=== PATIENT | male | born 1960 | race Caucasian/White ===

== ENCOUNTER 2021-12-21 11:17 | Emergency (ER) | payer MEDICAID, SELFPAY ==
[2021-12-21 11:34] VITALS: BP 131/74; PULSE 68; RESP 16; TEMP 35.9; O2SAT 100
--- NOTE | 2021-12-21 12:12 | ED.GENADULT ---
HPI - General Adult General Chief complaint: Dental/Oral Stated complaint: Sore Throat Time Seen by Provider: 12/21/21 12:12 Source: patient Mode of arrival: ambulatory Limitations: no limitations History of Present Illness HPI narrative: 61-year-old male presents with growth under tongue for 2 to 3 months. States it started as a small sore that he thought was a burn from hot food. Reports that it is getting larger and is painful. Now has lymph node swelling to his neck. Patient smokes cigarettes. Does not use chewing tobacco. All systems reviewed and negative except as noted above. Related Data Home Medications Medication Instructions Recorded Confirmed No Home Medications 12/21/21 12/21/21 Allergies Allergy/AdvReac Type Severity Reaction Status Date / Time Penicillins Allergy Other Verified 12/21/21 11:45 Review of Systems Review of Systems: CONSTITUTIONAL: Denies fever, chills, or sweats. EYES: Denies visual changes, redness, or discharge. ENT: Denies rhinorrhea, congestion, sore throat, or otalgia. Reports growth under his tongue. CARDIOVASCULAR: Denies chest pain, palpitations, or edema. RESPIRATORY: Denies cough or dyspnea. GASTROINTESTINAL: Denies abdominal pain, nausea, vomiting, or diarrhea. GENITOURINARY: Denies dysuria or hematuria. SKIN: Denies rash or itching. MUSCULOSKELETAL: Denies back pain, joint pain, or myalgia. NEUROLOGIC: Denies headache, numbness, or weakness. PSYCHIATRIC: Denies anxiety or depression. All other systems reviewed are negative, except as documented in HPI. PMFSH Comments At time of signature, agree with nursing past medical, surgical, social and family history. There is no relevant family history pertinent to the presenting complaint. Exam Narrative: GENERAL: This is a well-nourished, well-developed patient, in no apparent distress. HEAD: normocephalic, atraumatic. EYES: PERRL. Sclera clear/white. Vision is grossly intact. EARS: External ears normal NOSE: External nose normal Mouth: Mucous membranes moist, posterior pharynx clear. Patient has abnormal growth to floor of mouth/frenulum area. The area is erythematous and some white coloring. It is tender on palpation. NECK: Neck supple, cervical lymphadenopathy. CARDIOVASCULAR: Regular rate and rhythm without murmurs, gallops, or rubs. RESPIRATORY: Clear to auscultation. Breath sounds equal bilaterally. No wheezes, rales, or rhonchi. SKIN: warm, Dry, intact with no suspicious lesions or rash, good texture and turgor. NEURO: awake, alert, and oriented to person, place and time. There were no obvious focal neurologic abnormalities. EXTREMITIES: Normal range of motion to all extremities. Course Course Level of Care: Express Care Visit Vital Signs Vital signs: Vital Signs Temperature 35.9 C L 12/21/21 11:34 Pulse Rate 68 12/21/21 11:34 Respiratory Rate 16 12/21/21 11:34 Blood Pressure 131/74 12/21/21 11:34 Pulse Oximetry 100 12/21/21 11:34 Temperature 35.9 C L 12/21/21 11:34 Pulse Rate 68 12/21/21 11:34 Respiratory Rate 12/21/21 11:34 Blood Pressure 131/74 12/21/21 11:34 Pulse Oximetry 100 12/21/21 11:34 Reviewed Medical Decision Making MDM Narrative Medical decision making narrative: Patient has growth to floor of mouth that most likely needs biopsy. Patient given follow-up with [facility]. Informed patient that if symptoms are worsening, any difficulty swallowing or breathing recommend that he go to the ER. Patient is aware of diagnosis, understands and agrees to treatment plan. Anticipatory guidance given. Patient agrees to follow-up as directed and is aware of reasons to seek care at the emergency department. Portions of this record may have been created with voice recognition software Vital Signs Vital Signs: Vital Signs Temperature 35.9 C L 12/21/21 11:34 Pulse Rate 68 12/21/21 11:34 Respiratory Rate 12/21/21 11:34 B
== END 2021-12-21 12:20 | disposition home or self-care (01) ==
PROVIDERS: Emergency Provider Nurse Practitioner Family
DX: R22.0 Localized swelling, mass and lump, head (principal); R59.1 Generalized enlarged lymph nodes
CPT/HCPCS: 99211; G0463

== ENCOUNTER 2023-10-19 14:09 | Outpatient (CLI) | payer OTHER, SELFPAY ==
[2023-10-19 14:52] LABS: Basophils Absolute Auto 0.1 K/mm3 (0.0-0.1); Basophils Percent Auto 0.8 % (0.2-1.2); Eosinophils Absolute Auto 0.2 K/mm3 (0-0.3); Eosinophils Percent Auto 3.5 % (0-4.4); Hematocrit 42.1 % (42.0-52.0); Hemoglobin 13.7 g/dL (14.0-18.0); Immature Granulocyte Absolute 0.02 K/mm3 (0.00-0.031); Immature Granulocyte Percent A 0.3 % (0-0.5); Lymphocytes Absolute Auto 1.01 K/mm3 (0.9-3.2); Lymphocytes Percent Auto 15.9 % (18.3-44.2); Mean Corpuscular HGB Conc 32.5 g/dl (32-36); Mean Corpuscular Hemoglobin 31.4 pg (26-34); Mean Corpuscular Volume 96.3 fl (80-100); Mean Platelet Volume 9.6 fl (7.4-10.4); Monocytes Absolute Auto 0.8 K/mm3 (0.1-0.6); Monocytes Percent Auto 12.6 % (2.6-8.5); Neutrophils Absolute Auto 4.3 K/mm3 (1.3-6.7); Neutrophils Percent Auto 66.9 % (45.5-73.1); Platelet Count Result 319 k/mm3 (150-375); Red Blood Count 4.37 M/mm3 (4.6-6.20); Red Cell Distribution Width 13.2 % (11.5-14.5); White Blood Count 6.4 K/mm3 (4.5-10.0)
[2023-10-19 15:04] LABS: Alanine Aminotransferase 29 U/L (6-50); Albumin Level 4.2 g/dL (3.5-5.1); Alkaline Phosphatase 112 U/L (38-126); Anion Gap 8 mmol/L (8-16); Aspartate Amino Transferase 42 U/L (17-59); Bilirubin,Total 0.6 mg/dL (0.2-1.3); Blood Urea Nitrogen 24 mg/dL (9-20); Calcium 9.5 mg/dL (8.4-10.2); Carbon Dioxide 26 mmol/L (22-30); Chloride 104 mmol/L (98-107); Cholesterol 239 mg/dL (0-200); Estimated Glomerular Filt Rate > 60; Glucose 103 mg/dL (65-110); HDL Direct 35 mg/dL; Potassium 4.3 mmol/L (3.4-5.0); Sodium 138 mmol/L (137-145); Triglycerides 381 mg/dL (<150)
[2023-10-19 15:15] LABS: LDL Cholesterol Direct 133 mg/dL
[2023-10-19 15:34] LABS: Prostate Specific Antigen 2.7 ng/mL (< OR = 4.0)
== END 2023-10-19 14:10 | disposition home or self-care (01) ==
LOC: ANHLAB 14:10
PROVIDERS: PCP Internal Medicine; Visit Provider Clinical Nurse Specialist
DX: Z12.5 Encounter for screening for malignant neoplasm of prostate (principal); Z13.228 Encounter for screening for other metabolic disorders
CPT/HCPCS: 36415; 80053; 80061; 84153; 85025; G0103

== ENCOUNTER 2023-11-04 06:42 | Outpatient (NON) | payer OTHER, SELFPAY | END 2023-11-04 06:43 | disposition home or self-care (01) | PROVIDERS: PCP Internal Medicine; Visit Provider Internal Medicine Gastroenterology | DX: Z12.11 Encounter for screening for malignant neoplasm of colon (principal); D12.5 Benign neoplasm of sigmoid colon | CPT/HCPCS: 88305 ==

== ENCOUNTER 2023-11-04 07:22 | Day surgery (SDC) | payer OTHER, SELFPAY ==
[2023-10-21 10:11] VITALS: BMI 23.6
[2023-11-04 08:14] VITALS: BMI 23.0
[2023-11-04 08:18] VITALS: BP 112/86; PULSE 66; RESP 20; TEMP 36.7; O2SAT 99
--- NOTE | 2023-11-04 08:38 | P.HP_ITS ---
History of Present Illness History of Present Illness Consent: Risks, benefits, and alternatives have been discussed and questions answered. Patient agrees to proceed with procedure. Chief complaint: Neoplasm screening Narrative: Amrit Harmon is a 63 year old male presents for screening colonoscopy. Patient has a weight appetite and bowel movements are normal. Patient denies abdominal pain. He has had no bleeding. Previous colonoscopy 10 years ago was unremarkable. Patient does report having insert 2 years ago. Currently being monitored , he is felt to be free of disease. Review of Systems Review of Systems: Review of systems noncontributory. [facility] Past Medical History Medical History Allergy to honey bee venom Family History Family History Father Alcoholism Grandparent Lung cancer Malignant neoplasm of prostate Diabetes mellitus Social History Social History (Updated 10/20/23 @ 13:44 by Amber Kat MA) Smoking packs per day: 1 Smoking cigarettes per day: 20.0 Smoking status: Former smoker Alcohol intake: current Drinks per week: 5 Alcohol use details: 4 beers every couple of days Substance use: current Substance use type: does not use Living arrangements: alone Occupation/Education: occupation Additional occupation/education comments: [employer] Meds Home Medications and Allergies Home Medications Medication Instructions Recorded Confirmed Type chlorhexidine gluconate 0.12 % 15 ml buccal DAILY 10/20/23 11/04/23 History mouthwash doxazosin 2 mg tablet See Rx Instructions .Route 10/26/23 11/04/23 Rx .COMPLEX #30 tabs Allergies Allergy/AdvReac Type Severity Reaction Status Date / Time bee venom protein (honey bee) Allergy Severe Anaphylaxis Verified 11/04/23 08:06 Penicillins Allergy Other Verified 11/04/23 08:06 Vital Signs Vital Signs - 24 hr 11/04/23 08:18 Temperature 98.1 F Pulse Rate 66 Respiratory Rate 20 Blood Pressure 112/86 Pulse Oximetry 99 Oxygen Delivery Room Air Exam Narrative: Physical exam reveals patient signs stable. HEENT exam is unremarkable. Patient is anicteric. Lungs are clear to auscultation and percussion. Heart is without murmur or extra sounds. Abdomen bowel sounds are present soft nontender with no organomegaly. Digital external rectal exam normal. Assessment and Plan Assessment and plan (1) Screening for colon cancer: Code(s): Z12.11 - Encounter for screening for malignant neoplasm of colon Status: Acute Assessment and Plan: Patient presents today for screening colonoscopy. He appears to be at average risk for colon polyps. Last exam 10 years ago was unremarkable. (2) History of head and neck cancer: Code(s): Z85.89 - Personal history of malignant neoplasm of other organs and systems Status: Acute
--- NOTE | 2023-11-04 08:44 | WPDANESEPPF ---
Anes - Initial Pre Proc Eval Procedure: Operation Date: 11/04/23 09:30 Proposed Procedures p Colonoscopy - Prabhakar Rodriguez MD Date/Time: 11/04/23 08:44 Surgeon: Prabhakar Rodriguez MD Pre Op Diagnosis: Neoplasm screening Patient Data Age: 63 Gender: M Height: 1.8 m Weight: 74.8 kg Last Vital Signs Temp 36.7 C 11/04/23 08:18 Pulse 66 11/04/23 08:18 Resp 20 11/04/23 08:18 BP 112/86 11/04/23 08:18 Pulse Ox 99 11/04/23 08:18 O2 Del Method Room Air 11/04/23 08:18 Allergies Allergy/AdvReac Type Severity Reaction Status Date / Time bee venom protein (honey bee) Allergy Severe Anaphylaxis Verified 11/04/23 08:06 Penicillins Allergy Other Verified 11/04/23 08:06 Home Medications Medication Instructions Recorded Confirmed Type chlorhexidine gluconate 0.12 % 15 ml buccal DAILY 10/20/23 11/04/23 History mouthwash doxazosin 2 mg tablet See Rx Instructions .Route 10/26/23 11/04/23 Rx .COMPLEX #30 tabs Patient hx anesthesia problems: none Family hx anesthesia problems: none Results Review: All pre-operative results and documents have been reviewed as part of the pre-operative evaluation. [facility] Past Medical History Medical History Allergy to honey bee venom Family History Family History Father Alcoholism Grandparent Lung cancer Malignant neoplasm of prostate Diabetes mellitus Social History Social History Smoking packs per day: 1 Smoking cigarettes per day: 20.0 Smoking status: Former smoker Alcohol intake: current Drinks per week: 5 Alcohol use details: 4 beers every couple of days Substance use: current Substance use type: does not use Living arrangements: alone Occupation/Education: occupation Additional occupation/education comments: [employer] Anes - Eval Final PreProcedure Day of Procedure 11/04/23 08:44 Patient weight: normal Heart: regular rate and rhythm Lungs: decreased breath sounds Airway: Mallampati scale class III, special considerations retrognathia and other (previous head and neck radiation) Neurological: alert and oriented Last oral intake: >/= 8 hours ASA classification: III Emergent: no Anesthetic plan: proceed Anesthesia type and monitoring: general GIVS and standard monitoring Results Review: All pre-operative results and documents have been reviewed as part of the pre-operative evaluation. Informed Consent: The patient's anesthetic plan and its attendant risks and benefits were discussed with the patient/family/POA. Questions were solicited and answers provided to the satisfaction of the patient/family/POA.
[2023-11-04] MEDS: LACTATED RINGERS 1,000 ML 150 ML IV CONT (08:47)
[2023-11-04 09:13] VITALS: BP 108/69; PULSE 55; RESP 14; O2SAT 99
[2023-11-04 09:23] VITALS: BP 109/66; PULSE 50; RESP 14; O2SAT 99
[2023-11-04 09:33] VITALS: BP 115/69; PULSE 50; RESP 14; O2SAT 100
[2023-11-04 09:43] VITALS: BP 119/72; PULSE 51; RESP 14; O2SAT 100
[2023-11-04 09:53] VITALS: BP 130/70; PULSE 52; RESP 14; O2SAT 100
--- NOTE | 2023-11-04 10:54 | WPDANESPN ---
Anes - Prog Note Post-Op Date/Time: 11/04/23 10:54 Cardiovascular status: normal Respiratory status: normal Airway patency: baseline Mental status: baseline Post-Op hydration status: normal Vital Signs: Last Vital Signs Temp 36.7 C 11/04/23 08:18 Pulse 52 L 11/04/23 09:53 Resp 14 11/04/23 09:53 BP 130/70 11/04/23 09:53 Pulse Ox 100 11/04/23 09:53 O2 Del Method Room Air 11/04/23 09:53 Pain Score (VAS): 0 I/O: Intake & Output 11/03/23 11/04/23 11/04/23 23:59 07:59 15:59 Intake Total 850 Balance 850 Patient Feedback: Patient satisfied with anesthetic care.
== END 2023-11-04 10:00 | disposition home or self-care (01) ==
PROVIDERS: PCP Internal Medicine; Visit Provider Internal Medicine Gastroenterology
PROC: 0DJD8ZZ Inspection of Lower Intestinal Tract, Via Natural or Artificial Opening Endoscopic (ICD-10-PCS; CPT 45378; principal; 2023-11-04 09:30)
DX: Z12.11 Encounter for screening for malignant neoplasm of colon (principal); D12.5 Benign neoplasm of sigmoid colon; K64.8 Other hemorrhoids
CPT/HCPCS: 45385

== ENCOUNTER 2024-03-13 18:57 | Emergency (ER) | payer OTHER, SELFPAY ==
--- NOTE | ~2024-03-13 | CT_ITS ---
EXAMINATION: CT abdomen pelvis w con DATE: 03/13/2024 20:58 INDICATION: RLQ, LLQ tenderness TECHNIQUE: Computed tomography (CT) of the abdomen and pelvis was performed with 100 mL Omnipaque-350 intravenous contrast. Automated exposure control and iterative reconstruction technique were employe d. The dose-length product was 305.82 mGy-cm. COMPARISON: None. FINDINGS: Lower thorax: Unremarkable Liver: Normal. Biliary/Gallbladder: Gallbladder is normal. No bile duct dilation. Pancreas: No mass or duct dilation. Spleen: Normal. Adrenals:No mass. Kidneys: No suspicious mass, obstructing stone, or hydronephrosis. GI tract: No small or large bowel dilation. Normal appendix. Mesentery/Peritoneum: No ascites, mass, or free air. Retroperitoneum: No mass. Atherosclerotic abdominal aortic and/or arterial calcifications. Pelvis: The urinary bladder is mostly empty. Mild prostatomegaly. Soft Tissues: Soft tissues and body wall unremarkable. Bones: No acute osseous finding. IMPRESSION: No acute abdominopelvic process detected. Reviewed, dictated and finalized at location K.
[2024-03-13 19:00] VITALS: BP 119/70; PULSE 87; RESP 16; TEMP 36.4; O2SAT 100
--- NOTE | 2024-03-13 19:30 | ED.ABDPAIN ---
HPI - Abdominal Pain General Chief Complaint: Abdominal Pain Stated Complaint: abd pain Time Seen by Provider: 03/13/24 19:26 Source: patient Mode of arrival: ambulatory Limitations: no limitations History of Present Illness HPI narrative: This is a 63-year-old male With PMH of head and neck cancer s/p tracheostomy and removal, BPH who presents to the ED with chief complaint of abdominal pain x3 days. Patient reports nausea but no vomiting. Reports that he thought he may have been constipated so he took a laxative. . He states that he has had bowel movements every day. He is still having pain despite taking a laxative. Patient is on a liquid diet currently due to recently having tracheostomy removed. 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 Denies fevers, chills, back pain, urinary symptoms, GI bleeding symptoms, chest pain, shortness of breath, cough. Related Data Home Medications Medication Instructions Recorded Confirmed chlorhexidine gluconate 0.12 % 15 ml buccal DAILY 10/20/23 11/04/23 mouthwash Allergies Allergy/AdvReac Type Severity Reaction Status Date / Time bee venom protein (honey bee) Allergy Severe Anaphylaxis Verified 03/13/24 19:02 Penicillins Allergy Other Verified 03/13/24 19:02 Review of Systems Review of Systems: All systems as dictated in HPI [facility] Past Medical History Medical History Allergy to honey bee venom Family History Family History Father Alcoholism Grandparent Lung cancer Malignant neoplasm of prostate Diabetes mellitus Social History Social History Smoking packs per day: 1 Smoking cigarettes per day: 20.0 Smoking status: Former smoker Alcohol intake: current Drinks per week: 5 Alcohol use details: 4 beers every couple of days Substance use: current Substance use type: does not use Living arrangements: alone Occupation/Education: occupation 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 HEAD: Normocephalic, atraumatic. EYES: PERRLA and EOMI. ENT: Nares clear, no rhinorrhea or epistaxis. Mucous membranes moist. Oropharynx without tonsillar hypertrophy exudate or other lesions. NECK: Supple. No adenopathy or masses. Bandages covering anterior neck. CHEST: No respiratory distress. Clear to auscultation. No wheezes rales or rhonchi HEART: Regular rate and rhythm. No murmur heard. Normal peripheral pulses. ABDOMEN: Left lower and right lower quadrant tenderness present. Soft, nondistended, normal active bowel sounds. Equivocal Bain sign and McBurney's point. No rigidity or guarding MSK: Normal range of motion. No edema. SKIN: Warm, dry, no rash. NEURO: Alert and oriented x4. No focal deficits. PSYCH: Normal mood and affect. Course Vital Signs Vital signs: Vital Signs Temperature 97.5 F L 03/13/24 19:00 Pulse Rate 87 03/13/24 19:00 Respiratory Rate 16 03/13/24 19:00 Blood Pressure 119/70 03/13/24 19:00 Pulse Oximetry 100 03/13/24 19:00 Temperature 97.5 F L 03/13/24 19:00 Pulse Rate 64 03/13/24 22:06 Respiratory Rate 15 03/13/24 22:06 Blood Pressure 136/84 03/13/24 22:06 Pulse Oximetry 97 03/13/24 22:06 MDM - Abdominal Pain MDM Narrative Medical decision making narrative: this is a 63-year-old male who presents to the ED for chief complaint of abdominal pain for the past 3 days. Endorses nausea. Vitals are normal. Exam shows mild tenderness to the right lower, left lower quadrants. Nontoxic appearing lab work shows normal white count. CMP unremarkable. Lipase normal. UA normal. CT abdomen pelvis with IV contrast shows no acute findings. Patient has improved slight
[2024-03-13] MEDS: ONDANSETRON INJ 4 MG/2 ML VIAL IV PUSH (20:13)
[2024-03-13] MEDS: HYDROmorphone HCL INJ (*CRX) 1 MG/ML SYR 0.5 MG IV PUSH (20:14)
[2024-03-13 20:24] LABS: Basophils Absolute Auto 0.1 K/mm3 (0.0-0.1); Basophils Percent Auto 0.7 % (0.2-1.2); Eosinophils Absolute Auto 0.1 K/mm3 (0-0.3); Eosinophils Percent Auto 1.2 % (0-4.4); Hematocrit 35.5 % (42.0-52.0); Hemoglobin 11.9 g/dL (14.0-18.0); Immature Granulocyte Absolute 0.03 K/mm3 (0.00-0.031); Immature Granulocyte Percent A 0.4 % (0-0.5); Lymphocytes Absolute Auto 0.68 K/mm3 (0.9-3.2); Lymphocytes Percent Auto 8.3 % (18.3-44.2); Mean Corpuscular HGB Conc 33.5 g/dl (32-36); Mean Corpuscular Hemoglobin 31.5 pg (26-34); Mean Corpuscular Volume 93.9 fl (80-100); Monocytes Absolute Auto 0.8 K/mm3 (0.1-0.6); Monocytes Percent Auto 9.9 % (2.6-8.5); Neutrophils Absolute Auto 6.5 K/mm3 (1.3-6.7); Neutrophils Percent Auto 79.5 % (45.5-73.1); Platelet Count Result 419 k/mm3 (150-375); Red Blood Count 3.78 M/mm3 (4.6-6.20); Red Cell Distribution Width 12.4 % (11.5-14.5); White Blood Count 8.2 K/mm3 (4.5-10.0)
[2024-03-13 20:32] LABS: Appearance Urine Cloudy (Clear); Bacteria Urine None Seen /hpf; Bilirubin Urine Negative (Negative); Blood Urine Negative (Negative); Color Urine Dark Yellow (Yellow); Glucose Urine UA Negative (Negative); Ketones Urine Trace mg/dL (Negative); Leukocyte Esterase Ur Negative LEU/UL (Negative); Need Manual Microscopic Reviewed; Nitrate Urine Negative (Negative); Non Pathogenic Casts 0-2; Protein Urine 2+ mg/dL (Negative); RBC Urine 0-2 /hpf (0-2); Specific Grav Ur 1.031 (1.001-1.035); Squamous Epithelial Cell Urine None Seen /hpf (Few); WBC Urine 0-5 /hpf (0-3); pH Urine 6.5 (5.0-9.0)
[2024-03-13 20:34] LABS: Add Urine Microscopic? YES
[2024-03-13 20:41] LABS: Alanine Aminotransferase 24 U/L (6-50); Albumin Level 4.4 g/dL (3.5-5.1); Alkaline Phosphatase 112 U/L (38-126); Anion Gap 12 mmol/L (4-12); Aspartate Amino Transferase 27 U/L (17-59); Bilirubin,Total 0.7 mg/dL (0.2-1.3); Blood Urea Nitrogen 21 mg/dL (9-20); Calcium 9.3 mg/dL (8.4-10.2); Carbon Dioxide 26 mmol/L (22-30); Chloride 103 mmol/L (98-107); Estimated CRCL calculation 69 ml/min; Estimated Glomerular Filt Rate > 60; Glucose 105 mg/dL (65-110); Lipase 53 U/L (23-300); Potassium 3.6 mmol/L (3.4-5.0); Sodium 141 mmol/L (137-145)
[2024-03-13] MEDS: METOCLOPRAMIDE HCL INJ 10 MG/2 ML VIAL IV PUSH (21:58)
[2024-03-13] MEDS: DICYCLOMINE HCL INJ 20 MG/2 ML VIAL IM (21:58)
[2024-03-13 22:06] VITALS: BP 136/84; PULSE 64; RESP 15; O2SAT 97
== END 2024-03-13 22:06 | disposition home or self-care (01) ==
PROVIDERS: Emergency Provider Physician Assistant; PCP Internal Medicine
DX: R10.9 Unspecified abdominal pain (principal); N40.0 Benign prostatic hyperplasia without lower urinary tract symptoms; Z85.810 Personal history of malignant neoplasm of tongue
CPT/HCPCS: 36415; 74177; 80053; 81001; 83690; 85025; 96372; 96374; 96375; 99284; J0500; J1170; J2405; J2765; Q9967

== ENCOUNTER 2025-05-12 15:24 | Outpatient (CLI) | payer OTHER, SELFPAY ==
--- OUTSIDE RECORDS SUMMARY | 2025-05-12 15:27 | XMS_ITS | Clinical Summary ---
Author Organization [facility] al Address [address] [place] [address] Care Team Providers Care Programming Development Project Manager Name Role Phone Rakan Gaston MD Unavailable [phone] Yovanny oRuse DO Primary Care Provider [phone] Lyndon Ahn MD Unavailable Benja Salinas DDS Unavailable [phone] Allergies Active Allergy Reactions Criticality Noted Date Comments Penicillins Unknown Low 12/21/2021 Childhood allergy [place]et Venom Anaphylaxis High 01/03/2022 Medications al & mag hydroxide with simethicone-dip henhydramine-li docaine (MAGIC MOUTHWASH) suspension 9-0-1Psefmcfxaf s:Squamous cell carcinoma of tongue (HCC) Swish and swallow 15 mL every 2 (two) hours as needed (pain) 500 mL 4 2 Active doxazosin (CARDURA) 2 mg tabletIndicatio ns:hypertension Take 1 tablet (2 mg total) by mouth every morning 3 Active tamsulosin (FLOMAX) 0.4 mg extended release capsule Take 1 capsule (0.4 mg total) by mouth daily Active chlorhexidine (PERIDEX) 0.12 % solution RINSE AND GARGLE 15 ML BY MOUTH OR THROAT THREE TIMES DAILY 473 mL 4 Active omeprazole (PriLOSEC) 40 mg capsule Take 1 capsule (40 mg total) by mouth daily 90 capsule 3 5 04/26/20 26 Active omeprazole (PriLOSEC) 40 mg capsule Take 1 capsule (40 mg total) by mouth daily 30 capsule 5 04/18/20 25 Discontinu ed(Reorder ) omeprazole (PriLOSEC) 40 mg capsule Take 1 capsule (40 mg total) by mouth daily 30 capsule 5 04/26/20 25 Discontinu ed(Reorder ) Active Problems Problem Noted Date Diagnosed Date Dental caries on smooth surface penetrating into pulp 02/16/2024 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 Tongue cancer 02/16/2024 Pulmonary nodule 12/15/2022 Sensorineural hearing loss, asymmetrical 022 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 03/20/2022 Overview (03/20/2022): Added automatically from request for surgery [id number] 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 Cancer Staging:Pathologic:Stage II(pT2, pN0, cM0) - Unsigned Cancer of anterior portion of floor of mouth Overview (12/30/2021): Added automatically from request for surgery [id number] Pain of foot 08/23/2012 Late effect of fracture of lower extremity 01/28 Current smoker 09/25/2011 Encounters Date Type Department Care Team Description 04/26/2025 Orders Only [facility] Medicine Otolaryngology Head-Neck Division [address] [place] [phone] Maryjo Bowens PA 02/15/2025 Orders Only [facility] Medicine Otolaryngology Head-Neck Division [address] [place] [phone] Maryjo Bowens PA from Last 3 Months Surgical History Surgery Date Site/Laterality Comments FOOT FRACTURE SURGERY Left ARM SURGERY Right Fracture TRACHEOSTOMY 09/07/2021 - 09/06/2022 SKIN GRAFT TONGUE SURGERY 09/07/2021 - 09/06/2022 GASTROSTOMY W/ FEEDING TUBE 09/07/2021 - 09/06/2022 COLONOSCOPY IR G TUBE PLACEMENT PERCUTANEOUS 03/25/2022 N/A US GUIDED BIOPSY LYMPH NODE SUPERFICIAL LEFT 04/06/2023 N/A MULTIPLE TOOTH EXTRACTIONS 09/07/2021 - 09/06/2022 Medical History Medical History Date Comments No known problems Family History Medical History Relation Name Comments Heart disease Maternal Grandfather Anesthesia problems Neg Hx Cancer Neg Hx Relation Name Status Comments Father Maternal Grandfather Mother Alive Social History Tobacco Use Types Packs/Day Years Used Date Smoking Tobacco: Former Cigarettes 1 44 1 978 - 2021 Passive Smoke Exposure: Past Smokeless Tobacco: Never Tobacco Cessation:Counseling Given: Not Answered Alcohol Use Standard Drinks/Week Comments Not Asked 10 (1 standard drink = 0.6 oz pu re alcohol) AUDIT-C Answer Date Recorded Q1: How often do you have a drink containing alc ohol? Monthly or less 02/18/2024 Q2: How many drinks containi ng alcohol do you have on a typical day when you are drinking? 1 or 2 02/18/2024 Frequency of Binge Drinking Not on file 02/05 Hunger Vital Sign Answer Date Recorded Within the past 12 months, y ou worried that your food would run out before you got the money to buy more. Never true 12/03/19 24 Within the past 12 months, t he food you bought just didn't last and you didn't have money to get more. Never true 12/03/2023 Personal Safety Answer Date Recorded Have you ever been in or are you currently in a harmful physical or emotional relationship or is someone making you feel afraid or unsafe? Denies 02/24/2024 Sex and Gender Information Value Date Recorded Sex Assigned at Not on file Legal Sex Male 12:57 AM [employer] Gender Identity Not on file Sexual Orientation Not on file Obstetrics History Last Filed Vital Signs Vital Sign Reading Time Taken Comments Blood Pressure 115/76 12/26/2024 10:27 AM CDT Pulse 62 12/26/2024 10:27 AM CDT Temperature 36.1 C (96.9 F) 12/26/2024 10:27 AM CDT Respiratory Rate 16 12/26/2024 10:2 7 AM CDT Oxygen Saturation 98% 12/26/2024 10: 27 AM CDT Inhaled Oxygen Concentration - - Weight 76.2 kg (167 lb 14.4 oz) 025 10:27 AM CDT Height 180.3 cm (5' 11) 07/01/2024 9:48 AM CDT Body Mass Index 23.42 07/01/2024 9:48 AM CDT Plan of Treatment Health Maintenance Due Date Last Done Comments Colon Cancer Screening-Colonoscopy 1960 Depression Screening 1960 Hepatitis C Screening 1960 Prostate Cancer Screening-PSA 1960 DTaP/Tdap/Td Vaccine (1 - Tdap) 1971 Hepatitis B Screening 1978 Regular Well Visit/Exam 18-64 1978 Lung Cancer Screening 2010 Zoster Vaccine (1 of 2) 2010 Covid-19 Vaccine (2023-2 5 season) 2024 01/02/2021, 12/11/2020 Influenza Vaccine (#1) 2025 Pneumococcal vaccine <65 Aged Out No longer eligible based on patient's age to complete this topic Medical Devices Implanted Type Area Vocational Services Specialist Device Identifier Shelf Expiration Date Model / Serial / Lot Screws Right: Wrist [employer] Bruce Microvascular 3.5mm Ring Pin Protective Cover Jaw Assembly Latex Free [id number] - [id number] Implanted:Qty: 1 on 01/23/2022 by Rakan Gaston MD at [facility] Right: Neck [employer]ian [id number] 07/17/2026 [id number] / / [id number] [place] [address] [facility] [place] [address] [facility] [address] [facility] Advance Directives For more information, please contact: [phone] * Full Code (Latest Code Status on File) Date Activated Date Inactivated Comments 03/25/2022 4:52 PM 03/27/2022 5:48 PM * Full Code Date Activated Date Inactivated Comments 03/25/2022 3:47 PM 03/25/2022 4:52 PM * Full Code Date Activated Date Inactivated Comments 01/23/2022 8:44 PM 01/31/2022 8:17 PM Care Teams Programming Development Project Manager Relationship Specialty Start Date End Date Yovanny Rouse DO PCP - General Internal Medicine 01/14/22 Rakan Gaston MD Consulting Physician Otolaryngology 12/27/21 Lyndon Ahn MD Radiation Oncologist Radiation Oncology 04/09/22 Benja Salinas DDS [address] [facility] [address] [place] [address] Dentist Oral Surgery 02/24/24
--- OUTSIDE RECORDS SUMMARY | 2025-05-12 15:27 | XMS_ITS | Encounter Summary ---
Author Organization [facility] Address [address] [place] [address] Phone Care Team Providers Care Pants Closer Name Role Phone Rakan Gaston MD Unavailable Yovanny Rouse DO Primary Care Provider [phone] Lyndon Ahn MD Unavailable Benja Salinas DDS Unavailable Encounter Details Date Type Department Care Team (Late st Contact Info) Description 01/07/2023 Telephone [facility] ([facility]) - [facility] Medicine ENT [address] [facility] [address] [place] [address] [place] [address] Rakan Gaston MD [address] [place], [place] [id number] Social History Tobacco Use Types Packs/Day Years Used Date Smoking Tobacco: Former Cigarettes 1 44 1 978 - 2021 Smokeless Tobacco: Never Alcohol Use Standard Drinks/Week Comments Not Asked 10 (1 standard drink = 0.6 oz pu re alcohol) AUDIT-C Answer Date Recorded Q1: How often do you have a drink containing alcohol? Never 04/02/2022 Q2: How many drinks containi ng alcohol do you have on a typical day when you are drinking? Patient does not drink Q3: How often do you have si x or more drinks on one occasion? 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 Gender Identity Not on file Sexual Orientation Not on file documented as of this encounter Ordered Prescriptions Prescription Sig Dispense Quantity Refills Last Filled Start Date End Date clindamycin (CLEOCIN) solution 75 mg/5 mL Administer 20 mL (300 mg total) per feeding tube 3 (three) times a day for 14 days 840 mL 01/07/2023 3 documented in this encounter Plan of Treatment Not on file documented as of this encounter Visit Diagnoses Not on filedocumented in this encounter Discontinued Medications Medication Sig Discontinue Reason Start Date End Da te ciprofloxacin (CIPRO) suspension 250 mg/5 mL Take 10 mL (500 mg total) by mouth 2 (two) times a day for 10 days Cost of medication 01/06/2023 01/07/2023 documented as of this encounter Care Teams Pants Closer Relationship Specialty Start Date End Date Yovanny Rouse DO PCP - General Internal Medicine 01/14/22 Rakan Gaston MD Consulting Physician Otolaryngology 12/27/21 Lyndon Ahn MD Radiation Oncologist Radiation Oncology 04/09/22 Benja Salinas DDS [address] [facility] [address] [place] [address] Dentist Oral Surgery 02/24/24 documented as of this encounter
--- OUTSIDE RECORDS SUMMARY | 2025-05-12 15:27 | XMS_ITS ---
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 Past Treatment and Therapy Plans No past plan information found. Radiation Treatments * Course [id number] 04/24/2022 - 06/10/2022 Treatment Period Energy Fraction Dose Fractions Total Dose Plans Planned HEAD AND NECK 04/24/2022 - 06/10/2022 200 33 / 6,600 Reference Points Delivered Head & Neck 04/24/2022 - 06/10/2022 6,600 Lifetime Dose Tracking * Chemical Lifetime Dose Automatic Entry Manual Entr y Fluoro Time 9.8 minutes 9.8 minutes 0 minutes Air kerma at the reference point (Ka,r) 38.3 mGy 3 8.3 mGy 0 mGy DLP 4,749.6 mGycm 4,749.6 mGycm 0 mGycm
--- OUTSIDE RECORDS SUMMARY | 2025-05-12 15:28 | XMS_ITS | Clinical Summary ---
Author Organization [facility] Address [address] [place] [id number] Care Team Providers Care Store Team Leader Name Role Phone Unavailable Primary Care Provider Unavailabl e Social History Tobacco Use Types Packs/Day Years Used Date Smoking Tobacco: Never Assessed Sex and Gender Information Value Date Recorded Sex Assigned at Not on file Legal Sex Male 5:38 PM CDT Gender Identity Not on file Sexual Orientation Not on file Plan of Treatment Health Maintenance Due Date Last Done Comments Colorectal Cancer Screening Colonoscopy (10 Years) 1960 Annual Physical 1963 Hepatitis C 1978 DTaP, Tdap and Td Vaccines ( 1 - Tdap) 1979 Pneumococcal Vaccine: 50+ Ye ars (1 of 1 - PCV) 2010 Zoster Vaccines (1 of 2) 2010 COVID-19 Vaccine (1 - 2023-2 5 season) 2025 RSV Immunization or 60+ Years (1 - 1-dose 75+ series) 2035 Meningococcal B Vaccine Aged Out No l onger eligible based on patient's age to complete this topic Meningococcal Vaccine Aged Out No tayo estephania eligible based on patient's age to complete this topic RSV Immunizations Under 20 Months Aged Out No longer eligible based on patient's age to complete this topic
[2025-05-12 16:03] LABS: Hematocrit 43.3 % (42.0-52.0); Hemoglobin 14.3 g/dL (14.0-18.0); Immature Granulocyte Percent A 0.5 % (0-0.5); Lymphocytes Absolute Auto 0.81 K/mm3 (0.9-3.2); Mean Corpuscular HGB Conc 33.0 g/dl (32-36); Mean Corpuscular Hemoglobin 31.2 pg (26-34); Mean Corpuscular Volume 94.3 fl (80-100); Nucleated Red Blood Cells Absolute Auto 0.000 K/mm3 (0.0-0.012); Nucleated Red Blood Cells Perc 0.0 % (0.0-0.2); Platelet Count Result 261 k/mm3 (150-375); Red Blood Count 4.59 M/mm3 (4.6-6.20); White Blood Count 5.6 K/mm3 (4.5-10.0)
[2025-05-12 16:21] LABS: Alanine Aminotransferase 30 U/L (6-50); Albumin Level 4.0 g/dL (3.5-5.1); Alkaline Phosphatase 117 U/L (38-126); Anion Gap 7 mmol/L (4-12); Aspartate Amino Transferase 43 U/L (17-59); Bilirubin,Total 0.4 mg/dL (0.2-1.3); Blood Urea Nitrogen 21 mg/dL (9-20); Calcium 9.1 mg/dL (8.4-10.2); Carbon Dioxide 28 mmol/L (22-30); Chloride 104 mmol/L (98-107); Cholesterol 219 mg/dL (0-200); Estimated Glomerular Filt Rate > 60; Glucose 107 mg/dL (65-110); HDL Direct 30 mg/dL; Potassium 4.5 mmol/L (3.4-5.0); Sodium 139 mmol/L (137-145); Total Protein 8.1 g/dL (6.3-8.2); Triglycerides 513 mg/dL (<150)
[2025-05-12 16:58] LABS: Prostate Specific Antigen 3.1 ng/mL (< OR = 4.0)
[2025-05-12 17:17] LABS: Vitamin B12 724.0 pg/mL (239-931)
== END 2025-05-12 15:25 | disposition home or self-care (01) ==
LOC: ANHLAB 15:25
PROVIDERS: PCP Internal Medicine; Visit Provider Clinical Nurse Specialist
DX: Z13.228 Encounter for screening for other metabolic disorders (principal); Z12.5 Encounter for screening for malignant neoplasm of prostate; N40.1 Benign prostatic hyperplasia with lower urinary tract symptoms; R39.11 Hesitancy of micturition; E78.5 Hyperlipidemia, unspecified
CPT/HCPCS: 36415; 80053; 80061; 82607; 84153; 85025; G0103